=== PATIENT | male | born 1985 | race Two or more races ===

== ENCOUNTER 2024-04-16 07:33 | Day surgery (SDC) | payer OTHER ==
[2024-04-13 10:59] VITALS: BMI 29.9
[2024-04-16] MEDS ORDERED: MIDAZOLAM HCL 2 MG/2 ML SINGLE DOSE VIAL ONE (16:35)
[2024-04-16 17:25] VITALS: RESP 16
[2024-04-16 19:01] VITALS: BP 109/75; PULSE 70; TEMP 97.3
== END 2024-04-16 19:10 | disposition home or self-care (01) ==
LOC: JASU-SURG 07:33
PROVIDERS: ATTEND Urology
PROC: 0TF3XZZ Fragmentation in Right Kidney Pelvis, External Approach (ICD-10-PCS; principal; 2024-04-16 16:00)
DX: N20.0 Calculus of kidney (principal)